=== PATIENT | female | born 1995 | race Caucasian/White ===

== ENCOUNTER 2017-01-18 14:56 | Emergency (ER) | payer SELFPAY | END 2017-01-18 18:58 | disposition home or self-care (01) | LOC: ER 14:56 | DX: S62.306A Unspecified fracture of fifth metacarpal bone, right hand, initial encounter for closed fracture (principal); F41.9 Anxiety disorder, unspecified; F17.200 Nicotine dependence, unspecified, uncomplicated; Y93.51 Activity, roller skating (inline) and skateboarding | CPT/HCPCS: 73130-RT; 99283; A9270-GY ==